=== PATIENT | female | born 2000 | race African-American/Black ===

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

== ENCOUNTER 2018-01-20 16:13 | Emergency (ER) | payer MEDICAID, SELFPAY ==
[2018-01-20 16:14] VITALS: BP 118/78; PULSE 52; RESP 16; TEMP 36.9; O2SAT 97; BMI 27.4
--- NOTE | 2018-01-20 16:28 | ED.VISSUMM ---
- ER Visit Summary Date of Service: 01/20/18 Chief Complaint: Sore throat History of Present Illness: The patient is a 17 F presenting with sore throat/ painful swallowing. Patient states this started yesterday. She woke up and continues to have painful swallowing. She is able to swallow with pain. She denies drooling. Denies fever. Denies sick contacts. Denies other complaints. Physical Examination: Vitals are stable. Patient is afebrile. Alert no acute distress. HEENT exam pharyngeal erythema with no exudate, uvula is midline Neck is supple. No meningismus Lungs are clear and equal bilaterally. Heart is regular rate and rhythm. Abdomen is soft nontender nondistended. Extremities are unremarkable. Skin is warm and dry. Remainder of exam is unremarkable. Emergency Department Course and Treatment: Patient was given Decadron p.o. Rapid strep is negative. Soft tissue neck x-ray shows no acute process. Patient is feeling improved after Decadron. She is able to tolerate p.o. She is advised to follow-up with her primary care physician. She is advised to return to ED for any worsening complaints. Disposition: Discharge home Impression: Pharyngitis This note was generated with [employer] dictation software. It may contain incorrect words, spelling, and punctuation that were not noted in review of the chart prior to signing ED Disposition - Plan for ED Patient: Chief Complaint: Other, Pain/Inj Referrals: Care Physician,No Primary [Primary Care Provider] -
--- NOTE | 2018-01-20 16:30 | RAD_ITS ---
STUDY: X-RAY - SOFT TISSUE NECK REASON FOR EXAM: Female, 17 years old. For stroke. TECHNIQUE: view(s) of the neck were obtained. COMPARISON: None. FINDINGS: Normal visualized nasopharynx, oropharynx, hypopharynx. Normal epiglottis. Normal visualized subglottic tracheal air column. Normal prevertebral soft tissue structures. Normal visualized osseous structures. The soft tissue structures are unremarkable. There is no opaque foreign body. RAD/Neck for Soft Tissue IMPRESSION: Normal x-ray soft tissue neck. Electronically Signed: Foster Moran DO at 16:57 EDT Tel [phone], Service support ,
--- NOTE | 2018-01-20 17:46 | ED.DEP ---
ED Disposition - Plan for ED Patient: Chief Complaint: Other, Pain/Inj Instructions: ED Pharyngitis Viral Referrals: Care Physician,No Primary [Primary Care Provider] - Gilbert Ballard DO [STAFF PHYSICIAN] -
[2018-01-20 17:58] VITALS: BP 126/82; PULSE 88; RESP 16; O2SAT 98
== END 2018-01-20 18:03 | disposition home or self-care (01) ==
PROVIDERS: Emergency Provider Emergency Medicine
DX: J02.9 Acute pharyngitis, unspecified (principal); Z72.0 Tobacco use
CPT/HCPCS: 70360; 87880; 99284

== ENCOUNTER 2018-07-10 19:12 | Emergency (ER) | payer MEDICAID, SELFPAY ==
[2018-07-10 19:13] VITALS: BP 120/81; PULSE 78; RESP 16; TEMP 36.6; O2SAT 99; BMI 25.8
--- NOTE | 2018-07-10 19:20 | ED.RN ---
DR ARANDA AT BEDSIDE, PT STATES SHE DOSESN'T FEEL WANTED AT HER HOME. PT STAYS WITH MOTHER. PT STATES SHE HAD PRIOR SUICIDAL ATTEMPT. PT IS PINK SLIPPED BY PD.
--- NOTE | 2018-07-10 19:24 | ED.VISSUMM ---
- ER Visit Summary Date of Service: 07/10/18 Chief Complaint: Suicidal ideation History of Present Illness: The patient is a 18 F who presents with suicidal thoughts. Patient posted on social media that she was going to commit suicide. She was drawing a bath and planned on sitting in the bathtub with a toaster. She states that she was angry at her mother because I am not wanted at my house. She has a previous suicide attempt at age 13. She does not see any counselor or psychiatrist as an outpatient. She takes no medications. Physical Examination: Vital signs reviewed. HEENT exam unremarkable. Heart is regular rate and rhythm without murmurs. Lungs are clear to auscultation. Abdomen is soft and nontender. Extremities reveal no edema. Skin exam normal. Neurologic exam normal. Patient is a flat affect. She does voice suicidal thoughts. Her insight and judgment are poor. Test Results: Laboratory studies normal except for tox screen shows cannabis Emergency Department Course and Treatment: Patient was evaluated by the workers compensation claims analyst. They feel that this was likely more behavioral issue. She did not even have the toaster plugged again. Patient will be given an outpatient appointment in the next 2 days. She is not going home to her regular house. She will go home with a cousin hal. She will sign a safety plan. Treatment Plan: [] Disposition: Discharge Impression: Suicidal thoughts This note was generated with [employer] dictation software. It may contain incorrect words, spelling, and punctuation that were not noted in review of the chart prior to signing ED Disposition - Plan for ED Patient: Chief Complaint: Suicidal Referrals: Care Physician,No Primary [Primary Care Provider] -
--- NOTE | 2018-07-10 19:34 | CM.ED ---
SOCIAL WORK NOTE DISCUSSED CASE WITH DR. ARANDA. PT TO BE EVALUATED BY [facility].
[2018-07-10 19:51] LABS: Absolute Lymphocyte Count 1.51 X10^3/ul (0.83-4.51); Basophil# 0.02 X10^3/uL; Basophil% 0.4 % (0-1); Eosinophil# 0.02 X10^3/uL; Eosinophils% 0.4 % (0-5); Hematocrit 38.3 % (37-47); Hemoglobin 12.2 g/dl (12.0-15.0); Lymphocyte # 1.51 X10^3/ul (4.0); Lymphocyte % 30.6 % (19-41); Mean Corp Hgb Conc 31.9 g/gl (32-36); Mean Corpuscular Hgb 30.1 pg (27.0-32.0); Mean Corpuscular Volume 94.6 fL (81-99); Mean Platelet Vol. 9.5 fl (6.2-12.0); Monocyte# 0.39 X10^3/uL; Monocyte% 7.9 % (0-10); Neutrophil % 60.7 % (47-70); Platelet Count 346 K/mm3 (150-450); RBC Distribution Width CV 13.5 % (11.6-14.6); RBC Distribution Width SD 46.7 fl (35.1-43.9); Red Blood Count 4.05 M/mm3 (4.2-5.4); White Blood Count 4.9 K/mm3 (4.4-11.0)
[2018-07-10 19:57] LABS: POSITIVE COUNT NO; POSITIVE DIFFERENTIAL NO; POSITIVE MORPHOLOGY NO
[2018-07-10 20:05] LABS: Anion Gap 8 (5-15); BUN 10 mg/dL (7-18); BUN/Creat Ratio 12.4 RATIO (10-20); Calcium,Total 8.7 mg/dL (8.5-10.1); Chloride 105 mmol/L (98-107); EST Glomerular Filtration Rate 96 mL/min (>60); Est Glom Filt Rate - Afr Amer 117 mL/min (>60); Estimated Creatinine Clearance 117.23 ml/min; Glucose 85 mg/dL (74-106); Potassium 3.8 mmol/L (3.5-5.1); Sodium Level 139 mmol/L (136-145)
[2018-07-10 20:13] VITALS: RESP 18
[2018-07-10 20:19] LABS: Alcohol, Blood (Medical)-Serum < 3.0 mg/dL
[2018-07-10 20:36] LABS: Pregnancy, Serum, hCG Quali. NEGATIVE Negative (0-9 Nonpreg)
[2018-07-10 20:37] LABS: Amphetamine Urine VISTA NEGATIVE (<1000 ng/mL); Barbiturate Urine VISTA NEGATIVE (< 200 ng/mL); Benzodiazepine Urine VISTA NEGATIVE (< 200 ng/mL); Cocaine Urine VISTA NEGATIVE (< 300 ng/mL); Ecstacy Urine VISTA NEGATIVE (< 500 ng/mL); Methadone Urine VISTA NEGATIVE (< 300 ng/mL); PCP Urine VISTA NEGATIVE (< 25 ng/mL); THC Urine VISTA POSITIVE (< 50 ng/mL); Vista UDS pH Range 6
--- NOTE | 2018-07-10 20:49 | ED.RN ---
CALLED [facility] TO SEE THIS PT, ALAN RUBIO IS [employer]
--- NOTE | 2018-07-10 21:19 | ED.RN ---
[facility] CALLED BACK, ALAN WILL BE IN
--- NOTE | 2018-07-10 22:59 | ED.DEP ---
ED Disposition - Plan for ED Patient: Disposition: Home or Assisted Living Chief Complaint: Suicidal Instructions: ED Contract, No Harm Referrals: Care Physician,No Primary [Primary Care Provider] -
[2018-07-10 23:20] VITALS: BP 129/88; PULSE 68; RESP 16; O2SAT 95
== END 2018-07-10 23:21 | disposition home or self-care (01) ==
PROVIDERS: Emergency Provider Emergency Medicine
DX: R45.851 Suicidal ideations (principal); F12.90 Cannabis use, unspecified, uncomplicated
CPT/HCPCS: 80048; 80307; 80320; 84703; 85025; 99283; G0480

== ENCOUNTER 2018-10-19 17:28 | Emergency (ER) | payer MEDICAID, SELFPAY ==
[2018-10-19 17:29] VITALS: BP 121/79; PULSE 55; RESP 18; TEMP 36.2; O2SAT 100; O2SAT 99; BMI 29.5
--- NOTE | 2018-10-19 17:57 | RAD_ITS ---
STUDY: X-RAY CHEST REASON FOR EXAM: Female, 18 years old. Cough with chest pain and tightness TECHNIQUE: AP COMPARISON: August 17, 2017 FINDINGS: The lungs are clear and expanded. There is no demonstrated pleural abnormality. Normal size heart. Normal mediastinum and hany. Normal visualized pulmonary arteries. Normal visualized aortic arch and descending thoracic aorta. Normal visualized thoracic spine. Normal visualized ribs, clavicles, and shoulders. There is no demonstrated abnormality of the visualized soft tissue structures of the upper abdomen. RAD/Chest 1 View (Portable) IMPRESSION: Normal x-ray examination of the chest. Electronically Signed: Dank Son MD at 18:22 EDT , Service support ,
--- NOTE | 2018-10-19 18:06 | ED.VISSUMM ---
- ER Visit Summary Date of Service: 10/19/18 Chief Complaint: Cough History of Present Illness: The patient is a 18 F presenting with cough x2 days. Patient states that it has been mildly productive of sputum. She denies fever. Denies rhinorrhea or sore throat. Her brother also has a similar cough. She denies other complaints. She has tried NyQuil at home. Physical Examination: Vitals are stable. Patient is afebrile. Alert no acute distress. HEENT exam is unremarkable. Neck is supple. Lungs are clear and equal bilaterally. Heart is regular rate and rhythm. Abdomen is soft nontender nondistended. Extremities are unremarkable. Skin is warm and dry. Remainder of exam is unremarkable. Emergency Department Course and Treatment: Chest x-ray shows no acute process. She is given prescription for Tessalon Perles. Advised to follow-up with her primary care physician. Advised return to ED for worsening complaints. Disposition: Discharge home Impression: URI This note was generated with [employer] dictation software. It may contain incorrect words, spelling, and punctuation that were not noted in review of the chart prior to signing ED Disposition - Plan for ED Patient: Referrals: Care Physician,No Primary [Primary Care Provider] -
--- NOTE | 2018-10-19 18:29 | ED.DEP ---
ED Disposition - Plan for ED Patient: Instructions: ED Upper Resp Infec No Abx Tx Prescriptions: Benzonatate [Tessalon Perle] 200 mg PO TID PRN PRN #20 capsule PRN Reason: Cough Referrals: Care Physician,No Primary [Primary Care Provider] - Cecilio Cabrera MD [STAFF PHYSICIAN] -
== END 2018-10-19 18:43 | disposition home or self-care (01) ==
PROVIDERS: Emergency Provider Emergency Medicine
DX: J06.9 Acute upper respiratory infection, unspecified (principal); Z72.0 Tobacco use
CPT/HCPCS: 71045; 99284

== ENCOUNTER 2018-11-29 03:45 | Emergency (ER) | payer MEDICAID, SELFPAY ==
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
== END 2018-11-29 06:10 | disposition home or self-care (01) ==
PROVIDERS: Emergency Provider Emergency Medicine; Family Provider Family Medicine; PCP Family Medicine
DX: S00.83XA Contusion of other part of head, initial encounter (principal); S00.211A Abrasion of right eyelid and periocular area, initial encounter; S10.91XA Abrasion of unspecified part of neck, initial encounter; Y04.2XXA Assault by strike against or bumped into by another person, initial encounter; Y93.9 Activity, unspecified; Y92.9 Unspecified place or not applicable
CPT/HCPCS: 70450; 70486; 72125; 99283

== ENCOUNTER 2019-04-05 09:00 | Emergency (ER) | payer MEDICAID, SELFPAY ==
[2019-04-05 09:01] VITALS: BP 123/79; PULSE 52; RESP 16; TEMP 37.2; O2SAT 100; BMI 24.3
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
--- NOTE | 2019-04-05 09:39 | ED.DEP ---
ED Disposition - Plan for ED Patient: Instructions: CONTUSION, Foot Prescriptions: Naproxen [Naprosyn] 500 mg PO BID PRN #20 tab Prescription Printed Referrals: Gilbert Ballard DO [Primary Care Provider] - 5-7 Days
== END 2019-04-05 11:12 | disposition home or self-care (01) ==
LOC: ED 09:37
PROVIDERS: Emergency Provider Emergency Medicine; Family Provider Family Medicine; PCP Family Medicine
DX: S90.31XA Contusion of right foot, initial encounter (principal); W22.8XXA Striking against or struck by other objects, initial encounter; Y93.9 Activity, unspecified; Y92.9 Unspecified place or not applicable
CPT/HCPCS: 73630; 99285

== ENCOUNTER 2020-04-29 14:07 | Emergency (ER) | payer MEDICAID, SELFPAY ==
[2020-04-29 14:08] VITALS: BP 121/70; PULSE 47; RESP 18; TEMP 36.2; O2SAT 100; BMI 25.1
--- NOTE | 2020-04-29 15:11 | ED.VIS.URI ---
History of Present Illness Chief Complaint: Ear Problem Informant: Patient Onset: Yesterday Context: Gradual Onset Timing: Continuous Quality: ache/sore Location: left ear Current Severity: Moderate Maximum Severity: Moderate Worsened by: - - nothing in particular Relieved by: - - hasn't tried anything Associated Symptoms: Negative for: Nasal Congestion, Headache, Nausea, Vomiting, Diarrhea Narrative: Patient states she is presenting for left earache and wanting a work note. She has not been swimming lately. She denies any changes in her hearing. No otorrhea. No fevers or chills. No sore throat, congestion, cough, recent URI, or other symptoms at this time. Past Medical History - Allergies and Home Meds Allergies/Adverse Reactions: Allergies No Known Allergies Allergy (Verified 04/05/19 09:09) Primary Care Physician: Gilbert Ballard DO [Primary Care Provider] - Past Medical History: None Smoking Status: Never smoker Review of Systems General: Denies: Chills, Fever, Sweats Eyes: Denies: Visual changes - bilaterally, Diplopia ENT: Reports: Left ear pain. Denies: Rhinorrhea, Sore throat Cardiovascular: Denies: Chest pain, Palpitations Respiratory: Denies: Dyspnea, Cough, Dyspnea on exertion Gastrointestinal: Denies: Nausea, Vomiting Skin: Denies: Rash, Wounds Neurological: Denies: Headache, Weakness, Numbness Physical Exam Vital Signs/Narrative: Vital Signs Temp Pulse Resp BP Pulse Ox 04/29/20 14:08 97.2 F L 47 L 18 121/70 H 100 Inital Vital Signs reviewed: Yes General: Well nourished, Well developed, - - Well-appearing no distress. Talking on cell phone. Head: Normocephalic, Atraumatic Eyes: Perrl, EOMI Ears: Normal external canal, TM's clear, Pain with Movement of Left Tragus, - - Cerumen present bilaterally, no obvious purulent discharge, no canal stenosis/edema. No focal abscesses in external auditory canals. Nose: Normal Inspection, No Rhinorrhea Neck: Supple, Nontender, No Lymphadenopathy Respiratory: No distress Skin: Normal color, No rash, No Trauma Neurological: Alert, Oriented x3, Cranial nerves II-XII grossly intact, Normal Strength, Normal Sensation, Normal Gait Psychological: Normal affect, Normal Mood Diagnostic/Tx/Re-eval - Medical Decision Making We will treat as an early external otitis with Cortisporin otic suspension, given appropriate discharge instructions for this and work note. ED Disposition - Plan for ED Patient: Disposition: Home or Assisted Living Diagnosis: Otitis externa, left Instructions: ED Otitis Externa Referrals: Gilbert Ballard DO [Primary Care Provider] - As Needed Additional Instructions: Use Cortisporin otic drops, 4 drops to affected ear, 4 times daily. Lie on your right side for 10 minutes after using the drops each time.
[2020-04-29 15:33] VITALS: BP 124/69; PULSE 72; RESP 15; O2SAT 99
== END 2020-04-29 15:35 | disposition home or self-care (01) ==
LOC: ED 15:24
PROVIDERS: Emergency Provider Emergency Medicine; PCP Family Medicine
DX: H60.92 Unspecified otitis externa, left ear (principal)
CPT/HCPCS: 99282

== ENCOUNTER 2020-07-19 12:14 | Emergency (ER) | payer MEDICAID, SELFPAY ==
[2020-07-19 12:14] VITALS: BP 109/64; PULSE 54; RESP 18; TEMP 36.6; O2SAT 100; BMI 27.3
--- NOTE | 2020-07-19 12:19 | ED.RN ---
PT REPEATEDLY PLAYING ON PHONE THIS RN ATTEMPTS TO ASK QUESTIONS. THIS RN ASKS PT TO PLEASE FINISH UP SO THAT SHE CAN CONTINUE ANSWERING QUESTIONS
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
[2020-07-19 14:16] VITALS: BP 122/67; PULSE 60; RESP 14; O2SAT 97
== END 2020-07-19 14:17 | disposition home or self-care (01) ==
PROVIDERS: Emergency Provider Emergency Medicine; PCP Family Medicine
DX: S53.402A Unspecified sprain of left elbow, initial encounter (principal); X50.1XXA Overexertion from prolonged static or awkward postures, initial encounter; Y93.9 Activity, unspecified; Y92.9 Unspecified place or not applicable
CPT/HCPCS: 73080; 99282

== ENCOUNTER 2022-05-31 11:32 | Emergency (ER) | payer MEDICAID, SELFPAY ==
[2022-05-31 11:33] VITALS: BP 106/83; PULSE 85; RESP 16; TEMP 36; O2SAT 98; BMI 22.1
--- NOTE | 2022-05-31 11:39 | EX.ED.DYSGE1 ---
HPI <ERI Galaviz - Last Filed: 05/31/22 15:19> History of Present Illness Chief Complaint: Abscess Narrative Narrative: 22-year-old female has had a swollen tender area over her right inner thigh for the last week. It does not seem to be increasing in size. There have been no skin changes or drainage. She tried using a heating pad with no relief. No fever or chills or systemic symptoms. PFSH <ERI Galaviz - Last Filed: 05/31/22 15:19> PFSH Home Medications naproxen 500 mg tablet 500 mg PO BID PRN #20 tabs 07/19/20 [Rx Last Taken Unknown] Allergy/AdvReac Type Severity Reaction Status Date / Time No Known Allergies Allergy Verified 07/19/20 12:23 Social History Smoking Status: Never smoker ROS <ERI Galaviz - Last Filed: 05/31/22 15:19> ROS ED ROS Narrative Constitutional: Negative for fever, chills, malaise. Eyes: Negative for visual change. ENT: Negative for sore throat, ear pain, rhinorrhea. CVS: Negative for palpitations, chest pain, syncope. Respiratory: Negative for shortness of breath, cough. GI: Negative for abdominal pain, nausea, vomiting, diarrhea. : Negative for dysuria, hematuria or frequency. Neuro: Negative for headache, motor/sensory dysfunction. Skin: Negative for rash, abscess, or wound. Musc: Negative for joint pain, swelling, trauma. Heme: Negative for easy bruising, bleeding, lymphadenopathy. EXAM <ERI Galaviz Last Filed: 05/31/22 15:19> Physical Exam Narrative Exam Narrative: CONST: Patient sitting in no acute distress. EYES: Normal inspection. NECK: Normal inspection. RESP: No respiratory distress, CTAB. CVS: Regular rate and rhythm, no murmur, no gallop. SKIN: Color normal, no rash, warm, dry, intact. EXTREMITIES: Normal appearance, small area of tenderness and induration over right medial thigh. No fluctuance or crepitus. Full range of motion, 2+ DP pulses. NEURO: Oriented x4. PSYCH: Normal affect. Const Vital Signs: 05/31/22 11:33 Temperature 96.8 F L Temperature Source Temporal Pulse Rate 85 Respiratory Rate 16 Blood Pressure 106/83 H Blood Pressure Mean 90 Pulse Ox 98 Oxygen Delivery Method Room Air <Dung Juárez MD - Last Filed: 05/31/22 19:25> Physical Exam Const Vital Signs: 05/31/22 11:33 Temperature 96.8 F L Temperature Source Temporal Pulse Rate 85 Respiratory Rate 16 Blood Pressure 106/83 H Blood Pressure Mean 90 Pulse Ox 98 Oxygen Delivery Method Room Air [facility] <ERI Galaviz - Last Filed: 05/31/22 15:19> [facility] Narrative Medical decision making narrative: Patient has a tender swollen area on her right medial thigh. There is no overlying skin changes to suggest cellulitis. Its not obviously fluctuant. There is no involvement of the genital region or Urodine symptoms. Bedside ultrasound does show a fluid collection and reactive lymph node. I anesthetized the area with 4 cc of 1% lidocaine and using ultrasound guidance placed an 18-gauge needle into the pocket of fluid but was only able to aspirate about 1 cc of blood. At this time I feel she can follow-up outpatient for further evaluation of this cyst. There is no clinical signs of infection so do not feel antibiotics are indicated but she was cautioned to return if it enlarges or develops redness or systemic symptoms. Patient was agreeable with this plan and discharged in stable condition. <Dung Juárez MD - Last Filed: 05/31/22 19:25> [facility] Narrative Medical decision making narrative: Patient has a tender swollen area on her right medial thigh. There is no overlying skin changes to suggest cellulitis. Its not obviously fluctuant. There is no involvement of the genital region or U[place]ine symptoms. Bedside ultrasound does show a fluid collection and reactive lymph node. I anesthetized the area with 4 cc of 1% lidocaine and using ultrasound guidance placed an 18-gauge needle into the pocket of fluid but was only able to aspirate about 1 cc of blood. At this time I feel she can follow-up outpatient for further evaluation of this cyst. There is no clinical signs of infection so do not feel antibiotics are indicated but she was cautioned to return if it enlarges or develops redness or systemic symptoms. Patient was agreeable with this plan and discharged in stable condition. I have personally performed a face to face assessment of the patient and have reviewed the MEGAN Note. I performed a substantive portion of the visit including all aspects of the following. My cochran findings include: History is right thigh pain and swelling times a few days Exam is afebrile. Vital signs noted. Nontoxic-appearing. Mild tenderness and swelling right thigh. Medical Decision Making fluid collection noted on bedside ultrasound. Needle aspiration. No purulent material returned. Follow-up primary care. Other additions or changes: [None] Discharge Plan Triage Chief Complaint: Abscess ED Midlevel Provider: Ivis Morales ED Provider: Dung Juárez Dx/Rx/DC Orders Clinical Impression: Cyst of skin and subcutaneous tissue Instructions: ED Abscess Incision And Drainage Prescriptions: No Action naproxen 500 MG tablet 500 mg PO BID PRN Qty: 20 0RF Primary Care Provider: Gilbert Ballard Referrals: Tamie Wright MD [Med Staff - Appraiser Auditor] - Gilbert Ballard, [Primary Care Provider] - Activity Restrictions/Additional Instructions: There is a cyst or fluid collection in her thigh that was unable to be drained here. Please follow-up with your primary care doctor. If it develops increased swelling, redness, or you have a fever come back to the ER. Disposition Disposition: Home, Self Care Discharge Date/Time: 05/31/22 12:53
[2022-05-31] MEDS: Lidocaine 1% (20 ml mdv) 20 ML Vial INFILT (12:49)
== END 2022-05-31 12:53 | disposition home or self-care (01) ==
PROVIDERS: Emergency Provider Emergency Medicine; PCP Family Medicine; Visit Provider Emergency Medicine
DX: L72.9 Follicular cyst of the skin and subcutaneous tissue, unspecified (principal); Z79.1 Long term (current) use of non-steroidal anti-inflammatories (NSAID)
CPT/HCPCS: 99284

== ENCOUNTER 2022-11-11 09:25 | Emergency (ER) | payer MEDICAID, SELFPAY ==
[2022-11-11 09:26] VITALS: BP 110/82; PULSE 81; RESP 16; TEMP 36.2; O2SAT 99; BMI 22.4
--- NOTE | 2022-11-11 09:39 | EX.ED.DYSGE1 ---
HPI History of Present Illness Chief Complaint: Nausea/Vomiting Informant: patient Narrative Narrative: Patient presents with feeling dehydrated nausea vomiting with hematemesis. Patient went to work and she was feeling normal. She works in a very hot area. She was sweating a lot. She started to feel lightheaded. This was bringing on a migraine for her. She does have a history of migraine. This felt like a typical migraine. She has stopped somebody at work for some medicine. She was given 3 pills. It sounds like it was aspirin Tylenol and a gelcap that they think was Advil. She stated then this caused nausea. She went outside where it was slightly cooler. She felt better outside but the nausea continued. She vomited twice. She did have some bright red blood when vomiting. Nausea is still there but it is actually better now and she is feeling overall a little bit better. No history of abdominal issues or recurrent nausea vomiting or diarrhea. No prior abdominal surgeries. Last menstrual cycle was 2 weeks ago and normal. She is not having pain in the abdomen. PFSH PFS Home Medications naproxen 500 mg tablet 500 mg PO BID PRN #20 tabs 07/19/20 [Rx Last Taken Unknown] Allergy/AdvReac Type Severity Reaction Status Date / Time No Known Allergies Allergy Verified 11/11/22 09:29 Social History Smoking Status: Never smoker ROS ROS ED ROS Narrative A complete review of systems was performed and is negative except as documented in the history of present illness. Some specific details below. Constitutional: No recent fevers or chills. She was feeling fine until she had been working for an hour or so. EYE: No visual complaints or pain. ENT: No difficulty swallowing. No swelling. No pain. No history of GERD. CV: No chest pain or palpitations. Respiratory: No dyspnea. No hemoptysis. No difficulty taking breaths. GI: Please see history of present illness. : No frequency dysuria or hematuria. Musculoskeletal: No recent trauma. No pains. Skin: No rash. Nondiaphoretic. Neuro: No weakness or numbness. Endocrine: No polyuria or polydipsia. EXAM Physical Exam Narrative Exam Narrative: CONSTITUTIONAL: Patient is nontoxic in appearance. The patient looks comfortable. HEENT: No notable trauma. Mucous membranes moist. No sinus tenderness. No indication of pain with swallowing. No intraoral lesions. EYES: No conjunctival injection. No proptosis. CARDIOVASCULAR: Regular rate. Regular rhythm. No notable murmur. No JVD. RESPIRATORY: No respiratory distress. Breathing is unlabored. No wheezes. No rhonchi. No rales. No pain with a deep breath. GASTROINTESTINAL: Not distended. Bowel sounds are normal. No tenderness. No guarding. No rebound. No palpable mass. No bruit. She is holding an emesis bag but states her nausea is somewhat improved. But overall her abdomen is benign. GENITOURINARY: No tenderness over the bladder. No CVA tenderness. MUSCULOSKELETAL: Atraumatic. No peripheral edema. NEUROLOGICAL: Patient is alert and appropriate. No focal deficit noted. SKIN: No noted rashes. No diaphoresis. PSYCHIATRIC: Patient is calm. Mood is appropriate. Const Vital Signs: 11/11/22 09:26 Temperature 97.2 F L Temperature Source Temporal Pulse Rate 81 Respiratory Rate 16 Blood Pressure 110/82 H Blood Pressure Mean 91 Pulse Ox 99 Oxygen Delivery Method Room Air MDM MDM MDM Narrative Medical decision making narrative: Patient CBC shows no acute abnormalities. No sign of anemia or thrombocytopenia. Electrolytes are normal. Glucose is minimally elevated at 108 but this is not likely the cause of her symptoms nor her diagnosis of diabetes. Calcium is normal at 9.3. Patient was given Zofran and IV fluids. She has no nausea. Her headache is gone. She feels much better. The friend that is with her states that she looks and feels much better. She is comfortable going home. We discussed drinking plain water and diet. Caffeinated drinks and artificial sweeteners as these can all be dehydrating. Lab Data Attestation: I reviewed the patient's lab results. Labs: Laboratory Results - last 24 hr 11/11/22 11/11/22 09:50 09:50 WBC 5.4 RBC 4.09 L Hgb 12.4 Hct 38.6 MCV 94.4 MCH 30.3 MCHC 32.1 RDW Std Deviation 53.9 H RDW Coeff of Myrno 15.4 H Plt Count 394 MPV 9.0 Immature Gran % (Auto) 0.200 Neut % (Auto) 65.7 Lymph % (Auto) 27.0 Harney % (Auto) 6.0 Eos % (Auto) 0.4 Baso % (Auto) 0.7 Absolute Neuts (auto) 3.5 Absolute Lymphs (auto) 1.45 Nucleated RBC % 0 Sodium 138 Potassium 3.8 Chloride 104 Carbon Dioxide 27.0 Anion Gap 7 BUN 14 Creatinine 0.92 Estim Creat Clear Calc 98.54 Est GFR (MDRD) Af Amer 96 Est GFR (MDRD) Non-Af 79 BUN/Creatinine Ratio 15.2 Glucose 108 H Calcium 9.3 Discharge Plan Triage Chief Complaint: Nausea/Vomiting ED Provider: Wilfredo Hernandez Dx/Rx/DC Orders Clinical Impression: Dehydration, mild, Yeimi-Morrison tear, Nausea & vomiting, Migraine Instructions: ED Dehydration (Adult), ED Vomiting (Adult) Prescriptions: No Action naproxen 500 MG tablet 500 mg PO BID PRN Qty: 20 0RF Stand Alone Forms: ED Work / School Excuse Primary Care Provider: Gilbert Ballard Referrals: Gilbert Ballard, [Primary Care Provider] - 3-5 Days if not improving Disposition Disposition: Home, Self Care
[2022-11-11] MEDS: 0.9% Normal Saline 1,000 ML 1000 ML IV (09:50)
[2022-11-11] MEDS: Ondansetron 4 MG/2 ML Vial IV (09:51)
[2022-11-11 09:59] LABS: Absolute Lymphocyte Count 1.45 X10^3/uL (0.83-4.51); Absolute Neutrophil Count 3.5 X10^3/uL (2.0-7.7); Basophil# 0.04 X10^3/uL; Basophil% 0.7 % (0-1); Eosinophil# 0.02 X10^3/uL; Eosinophils% 0.4 % (0-5); Hematocrit 38.6 % (37-47); Hemoglobin 12.4 g/dL (12.0-15.0); Lymphocyte # 1.45 X10^3/ul (0.83-4.51); Mean Corp Hgb Conc 32.1 g/dL (32-36); Mean Corpuscular Hgb 30.3 pg (27.0-32.0); Mean Corpuscular Volume 94.4 fL (81-99); Monocyte# 0.32 X10^3/uL; NRBC Flagged by Analyzer 0 % (0-5); Neutrophil # 3.53 X10^3/uL (2.7-7.7); Neutrophil % 65.7 % (47-70); Platelet Count 394 K/mm3 (150-450); RBC Distribution Width CV 15.4 % (11.6-14.6); RBC Distribution Width SD 53.9 fl (35.1-43.9); Red Blood Count 4.09 M/mm3 (4.2-5.4); White Blood Count 5.4 K/mm3 (4.4-11.0)
[2022-11-11 10:19] LABS: Anion Gap 7 (5-15); BUN 14 mg/dL (7-18); BUN/Creat Ratio 15.2 RATIO (10-20); Calcium,Total 9.3 mg/dL (8.5-10.1); Chloride 104 mmol/L (98-107); Creatinine, Serum 0.92 mg/dL (0.55-1.02); EST Glomerular Filtration Rate 79 mL/min (>60); Est Glom Filt Rate - Afr Amer 96 mL/min (>60); Estimated Creatinine Clearance 98.54 ml/min; Glucose 108 mg/dL (74-106); Potassium 3.8 mmol/L (3.5-5.1); Sodium Level 138 mmol/L (136-145)
== END 2022-11-11 11:35 | disposition home or self-care (01) ==
PROVIDERS: Emergency Provider Emergency Medicine; PCP Family Medicine; Visit Provider Emergency Medicine
DX: K22.6 Gastro-esophageal laceration-hemorrhage syndrome (principal); E86.0 Dehydration; G43.909 Migraine, unspecified, not intractable, without status migrainosus; R11.2 Nausea with vomiting, unspecified
CPT/HCPCS: 80048; 85025; 96361; 96374; 99284; J2405

== ENCOUNTER 2024-02-26 21:44 | Emergency (ER) | payer MEDICAID, SELFPAY ==
[2024-02-26 21:45] VITALS: BP 116/83; PULSE 51; RESP 18; TEMP 36.8; O2SAT 98; BMI 26.5
--- NOTE | 2024-02-26 22:19 | RAD_ITS ---
EXAM: XR CHEST, 2 VIEWS CLINICAL INDICATION: COUGH TECHNIQUE: Frontal and lateral views of the chest. COMPARISON: 10/19/2018 FINDINGS: LUNGS AND PLEURAL SPACES: No significant abnormality. No consolidation or edema. No pneumothorax. No effusion. HEART: No significant abnormality. Cardiac silhouette not enlarged. MEDIASTINUM: Central airways and mediastinal contour are unremarkable. BONES/JOINTS: No significant abnormality. No acute fracture. SOFT TISSUES: No significant abnormality. RAD/Chest PA and Lateral IMPRESSION: No radiographic evidence of acute cardiopulmonary disease. Electronically Signed: Darrell Brock DO at 22:26 EDT ,
[2024-02-26] MEDS: Benzonatate 100 MG Capsule 200 MG PO (22:24)
[2024-02-26] MEDS: dexAMETHasone 10 MG/ML Vial PO.IVFORM (22:24)
--- NOTE | 2024-02-26 23:27 | EDS_ITS ---
HPI History of Present Illness Chief Complaint: Cold Sx Informant: patient Narrative Narrative: Patient is a 23-year-old female with no significant past medical history. She states for the past 2 to 3 days she has had congestion drainage and cough. She reports that her brother whom she lives with is sick and she also has a coworker with similar symptoms. She denies any history of lung disorder history of immunosuppression but feels like her symptoms have been worsening and with concern for infection comes in for evaluation. PFSH PFSH no medical history Home Medications ?Medication ?Instructions ?Recorded ?Last Taken ?Type naproxen 500 mg tablet 500 mg PO BID PRN #20 tabs 07/19/20 Unknown Rx azelastine 137 mcg (0.1 %) nasal 2 spray intranasal BID #30 mL 02/26/24 Unknown Rx spray benzonatate 200 mg capsule 200 mg PO TID PRN cough #30 caps 02/26/24 Unknown Rx prednisone 20 mg tablet 40 mg (2 x 20 mg) PO DAILY 5 days 02/26/24 Unknown Rx #10 tabs Allergy/AdvReac Type Severity Reaction Status Date / Time No Known Allergies Allergy Verified 02/26/24 21:45 Social History Smoking Status: Never smoker ROS ROS ED Constitutional Constitutional ED: Denies chills or fever(s) Eyes Eyes: Denies blurry vision or change in vision ENT ENT ED: Reports ear pain, rhinorrhea and sore throat Cardiovascular Cardiovascular: Denies chest pain Respiratory/Chest Respiratory/Chest: Reports cough; Denies dyspnea Gastrointestinal Gastrointestinal: Denies abdominal pain, diarrhea, nausea or vomiting Genitourinary Genitourinary ED: Denies dysuria Musculoskeletal Musculoskeletal: Reports myalgias Integumentary Denies rash Neurologic Neurologic: Reports headache(s) Hematologic/Lymphatic Hematologic/Lymphatic: Denies easy bleeding or easy bruising Allergic/Immunologic Allergic/Immunologic ED: Denies mouth swelling or tongue swelling EXAM Physical Exam Const Vital Signs: 02/26/24 21:45 02/26/24 22:06 Temperature 98.2 F Temperature Source Temporal Pulse Rate 51 L Respiratory Rate 18 Respiratory Pattern Normal Blood Pressure 116/83 H Blood Pressure Mean 94 Pulse Ox 98 Oxygen Delivery Method Room Air Positive well nourished and well developed General Appearance ED: well developed; Negative for pallor HEENT HEENT Narrative: Nasal mucosa is hyperemic and boggy with enlarged inferior nasal turbinate There is cobblestoning the posterior pharynx consistent with sinus drainage but no airway edema or compromise No secondary findings in the posterior pharynx to suggest infection Bilateral TMs are retracted but show no secondary changes to suggest infection Eyes PERRL and EOMs intact bilaterally General Eye ED: Negative for pale conjunctiva or scleral icterus Neck supple Neck Narrative: No crepitance palpated Chest Wall palpation of chest normal Resp normal respiratory effort and clear to auscultation bilaterally Resp Narrative: No nasal flaring retractions tachypnea or accessory muscle use Cardio regular rate and regular rhythm Extremity normal to inspection Extremity Narrative: No asymmetric edema no pitting edema negative Homans' sign bilaterally Neuro oriented x3, CN's II-XII intact bilaterally and no sensory deficits noted Sensorium / Orientation: alert Motor Exam: strength 5/5 throughout Psych mental status grossly normal Skin no rashes or lesions noted General Skin Exam: Negative for jaundice or pallor MDM MDM MDM Narrative Medical decision making narrative: Patient arrived to the ER with stable vitals and no signs of acute respiratory distress. She reported multiple sick contacts and her physical exam and history is consistent with upper respiratory tract infection secondary to a viral source such as COVID versus influenza versus RSV. There is also concern for potential pneumonia and secondary to this a chest x-ray as well as viral swab were obtained. Chest x-ray revealed no signs of acute infiltrate and viral swab was negative. However just because COVID flu and RSV are negative is not rule out the fact that she may have rhinovirus or human metapneumovirus or parainfluenza. Either way she is not in respiratory distress she does not require supplemental oxygen he is not hypoxic and therefore there is no need for further workup or admission and she can be discharged home with symptomatic care. History & Record Review Discussion w/independent historian: Patient Radiography Diagnostic Testin view chest x-ray as interpreted by the emergency medicine physician reveals no acute infiltrate pneumothorax or pleural effusion Discharge Plan Triage Chief Complaint: Cold Sx ED Provider: Yuan Fernandez Dx/Rx/DC Orders Clinical Impression: Viral upper respiratory tract infection with cough Instructions: ED URI, Viral, No Abx (Adult) Prescriptions: New prednisone 20 mg tablet 40 mg PO DAILY 5 Days Qty: 10 0RF benzonatate 200 mg capsule 200 mg PO TID PRN (Reason: cough) Qty: 30 0RF azelastine 137 mcg (0.1 %) spray,non-aerosol 2 spray intranasal BID Qty: 30 0RF Rx Instructions: administer into each nostril No Action naproxen 500 MG tablet 500 mg PO BID PRN Qty: 20 0RF Stand Alone Forms: ED Work / School Excuse Primary Care Provider: Gilbert Ballard Referrals: Gilbert Ballard, [Primary Care Provider] - Print Language: Latvian Disposition Disposition: Home, Self Care
== END 2024-02-26 23:46 | disposition home or self-care (01) ==
PROVIDERS: Emergency Provider Emergency Medicine; PCP Family Medicine; Visit Provider Emergency Medicine
DX: J06.9 Acute upper respiratory infection, unspecified (principal); Z11.52 Encounter for screening for COVID-19
CPT/HCPCS: 71046; 87631; 99282

== ENCOUNTER 2024-03-14 20:40 | Emergency (ER) | payer OTHER, MEDICAID, SELFPAY ==
[2024-03-14 20:40] VITALS: BP 114/88; PULSE 56; RESP 16; TEMP 36.4; O2SAT 100; BMI 25.8
--- NOTE | 2024-03-14 20:45 | RAD_ITS ---
STUDY: X-RAY - RIGHT KNEE REASON FOR EXAM: Female, 23 years old. FALL TECHNIQUE: 4 view(s) of the knee. COMPARISON: None. FINDINGS: Normal visualized distal femur. Normal visualized proximal tibia and fibula. Normal proximal tibiofibular articulation. Normal medial femorotibial compartment. Normal lateral femorotibial compartment. Normal patellofemoral articulation. The soft tissue structures are unremarkable. RAD/Knee 4 or More Views IMPRESSION: Normal x-ray examination of the knee. Electronically Signed: Dank Son MD at 21:24 EDT ,
--- NOTE | 2024-03-14 22:30 | EDS_ITS ---
HPI History of Present Illness Chief Complaint: Lower Extremity Injury Informant: patient Narrative Narrative: 23-year-old female presenting to the emergency room with right knee injury. Patient states that yesterday she was at work and she slipped due to not having no shoes on. She states she landed on her right knee. She is unsure of exactly how she landed. She notes soreness tenderness and some mild swelling over the medial superior aspect of the anterior knee. She denies any other injuries or any lower leg injuries. She did not have a means of transportation until this evening to come to emergency previously. PFSH PFSH Home Medications ?Medication ?Instructions ?Recorded ?Last Taken ?Type naproxen 500 mg tablet 500 mg PO BID PRN #20 tabs 07/19/20 Unknown Rx azelastine 137 mcg (0.1 %) nasal 2 spray intranasal BID #30 mL 02/26/24 Unknown Rx spray benzonatate 200 mg capsule 200 mg PO TID PRN cough #30 caps 02/26/24 Unknown Rx prednisone 20 mg tablet 40 mg (2 x 20 mg) PO DAILY 5 days 02/26/24 Unknown Rx #10 tabs Allergy/AdvReac Type Severity Reaction Status Date / Time No Known Allergies Allergy Verified 03/14/24 20:42 Social History Smoking Status: Never smoker ROS ROS ED Constitutional Constitutional ED: Denies chills, fever(s) or weight loss Eyes Eyes: Denies change in vision or diplopia ENT ENT ED: Denies ear pain, rhinorrhea or sore throat Cardiovascular Cardiovascular: Denies chest pain, orthopnea, palpitations or racing heartbeat Respiratory/Chest Respiratory/Chest: Denies cough, dyspnea or orthopnea Gastrointestinal Gastrointestinal: Denies abdominal pain, diarrhea, nausea or vomiting Genitourinary Genitourinary ED: Denies dysuria, hematuria or urinary frequency Musculoskeletal Musculoskeletal: Reports other Details: See history of present illness ; Denies arthralgias, back pain, myalgias or neck pain Integumentary Denies abscess or rash Neurologic Neurologic: Denies headache(s) or weakness Psychiatric Psychiatric: Denies anxiety, depression, suicidal ideation or suicidal thoughts Endocrine Endocrinology: Denies polydipsia, polyphagia or polyuria Allergic/Immunologic Allergic/Immunologic ED: Denies mouth swelling, tongue swelling or urticaria EXAM Physical Exam Const Vital Signs: 03/14/24 20:40 Temperature 97.6 F L Temperature Source Temporal Pulse Rate 56 L Respiratory Rate 16 Blood Pressure 114/88 H Blood Pressure Mean 96 Pulse Ox 100 Oxygen Delivery Method Room Air Positive well nourished and well developed General Appearance ED: well developed HEENT Reports normocephalic, head/scalp atraumatic and moist mucous membranes Eyes PERRL and EOMs intact bilaterally Neck no lymphadenopathy, supple and no JVD Resp normal respiratory effort and clear to auscultation bilaterally Cardio regular rate, regular rhythm and no murmurs GI normal to inspection, nondistended, normoactive bowel sounds and non-tender Palpation: soft Back/Spine no CVA tenderness and normal ROM Extremity Extremity Narrative: No obvious joint effusion. No bursal swelling. Tensor mechanism of the right knee is intact. There is mild swelling and tenderness over the medial superior aspect of the patella soft tissue. The patella itself is nontender. Ligamentous exam appears normal. Neurovascular intact distal. General Extremety ED: Negative for edema General Extremity: Negative for edema Neuro oriented x3 and CN's II-XII intact bilaterally Sensorium / Orientation: alert Motor Exam: strength 5/5 throughout Psych mental status grossly normal Mood & Affect: Negative for depressed or tearful Skin no rashes or lesions noted and no wounds MDM MDM MDM Narrative Medical decision making narrative: Differential diagnosis includes but not limited to fractures ligamentous sprain bony contusion connective tissue injury neurovascular injury muscle contusion traumatic bursitis My independent interpretation of the plain films of the right knee is no acute fracture. Radiology over read is negative as well. Clinically this appears more of a contusion. The area that is hurting does not appear to be a ligamentous sprain. Would recommend Vernon wrap as needed for support ibuprofen and ice. Follow-up Workmen's Comp. not improving History & Record Review Discussion w/independent historian: Patient Radiography Diagnostic Testing: Clinical Impression(s) from Imaging Studies Knee X-Ray 03/14/24 20:45 IMPRESSION: Normal x-ray examination of the knee. Electronically Signed: Dank Son MD at 21:24 EDT Reading Location ID and [facility] [id number] [facility] [place] Tel , Service support , Discharge Plan Triage Chief Complaint: Lower Extremity Injury ED Provider: Hemal Herzog Dx/Rx/DC Orders Prescriptions: No Action naproxen 500 MG tablet 500 mg PO BID PRN Qty: 20 0RF prednisone 20 mg tablet 40 mg PO DAILY 5 Days Qty: 10 0RF benzonatate 200 mg capsule 200 mg PO TID PRN (Reason: cough) Qty: 30 0RF azelastine 137 mcg (0.1 %) spray,non-aerosol 2 spray intranasal BID Qty: 30 0RF Rx Instructions: administer into each nostril Primary Care Provider: Gilbert Ballard Referrals: Gilbert Ballard, [Primary Care Provider] - Print Language: Czech
== END 2024-03-14 22:42 | disposition home or self-care (01) ==
PROVIDERS: Emergency Provider Emergency Medicine; PCP Family Medicine; Visit Provider Emergency Medicine
DX: S89.90XA Unspecified injury of unspecified lower leg, initial encounter (principal); W01.0XXA Fall on same level from slipping, tripping and stumbling without subsequent striking against object, initial encounter; Y99.0 Civilian activity done for income or pay
CPT/HCPCS: 73564; 99282

== ENCOUNTER 2024-05-20 20:15 | Emergency (ER) | payer MEDICAID, SELFPAY ==
[2024-05-20 20:16] VITALS: BP 114/84; PULSE 90; RESP 18; TEMP 36.2; O2SAT 98; BMI 26.9
--- NOTE | 2024-05-20 20:51 | EDS_ITS ---
HPI <RACHEL Gomez - Last Filed: 05/20/24 21:54> History of Present Illness Chief Complaint: Upper Extremity Injury Narrative Narrative: Patient is a 24-year-old female with no significant medical history who presents to the [facility] for right arm pain. Patient states ever since Thanksgiving, she has been having achy feeling to her right arm. Patient states it hurts the entire arm. She is concerned she might have a blood clot. Patient states that her mother and her aunt both have them. She has no personal history of blood clots, she denies any injury, long car rides, IV catheters, any trauma to that arm [facility] <RACHEL Gomez - Last Filed: 05/20/24 21:54> [facility] Home Medications ?Medication ?Instructions ?Recorded ?Last Taken ?Type naproxen 500 mg tablet 500 mg PO BID PRN #20 tabs 07/19/20 Unknown Rx azelastine 137 mcg (0.1 %) nasal 2 spray intranasal BID #30 mL 02/26/24 Unknown Rx spray benzonatate 200 mg capsule 200 mg PO TID PRN cough #30 caps 02/26/24 Unknown Rx prednisone 20 mg tablet 40 mg (2 x 20 mg) PO DAILY 5 days 02/26/24 Unknown Rx #10 tabs Allergy/AdvReac Type Severity Reaction Status Date / Time No Known Allergies Allergy Verified 05/20/24 20:16 Social History Smoking Status: Never smoker ROS <RACHEL Gomez - Last Filed: 05/20/24 21:54> ROS ED ROS Narrative Constitutional: Negative for fever, chills, weight loss, weakness Eyes: Negative for vision loss, vision change, double vision ENT: Negative for any sore throat, ear pain, congestion Cardiovascular: Negative for any chest pain, tightness, palpitations Respiratory: Negative for any cough, sputum production, hemoptysis, dyspnea, dyspnea on exertion, orthopnea Gastrointestinal: Negative for any abdominal pain, nausea, vomiting, diarrhea, constipation, blood in stool, blood in vomit : Negative for any urinary frequency, dysuria, retention, blood in urine Muscle skeletal: Negative for any neck pain, back pain. Positive for right arm pain Neurological: Negative for any headache, syncope, dizziness Skin: Negative for any rashes, itching, abrasions, lacerations Psychiatric: Negative for any depression, anxiety, stress, suicidal ideation, homicidal ideation Hematologic: Negative for any excessive bruising, easy bleeding EXAM <RACHEL Gomez - Last Filed: 05/20/24 21:54> Physical Exam Narrative Exam Narrative: Vital signs reviewed. HEET: Head normocephalic atraumatic, TMs clear bilaterally. Posterior pharynx is clear, moist mucous membranes. Nares clear bilaterally. Neck: Supple with no lymphadenopathy or tenderness. No signs of meningismus. Cardiac: Regular rate and rhythm no murmurs gallops or rubs, equal peripheral pulses bilaterally. Respiratory: Lungs clear to auscultation bilaterally. No chest tenderness. Abdomen: Soft, nontender, nondistended. No abdominal bruit or pulsatile masses. No hepatosplenomegaly Extremities: No peripheral edema, no signs of gross trauma or deformity. Active full range of motion of all extremities. Patient has no swelling, +2 radial pulse. No signs of trauma. There is no edema, patient is able to flex and extend without difficulty. Neuro: Cranial nerves II through XII intact, no focal neurological deficits. Skin: Clean dry and intact with no rash, purpura, petechiae, vesicles or pustules. Backs/flank: No CVA tenderness, no midline spinal tenderness, no deformity. Psych: Normal mood and affect. No SI, HI or acute psychosis. Const Vital Signs: 05/20/24 20:16 Temperature 97.2 F L Temperature Source Temporal Pulse Rate 90 Respiratory Rate 18 Blood Pressure 114/84 H Blood Pressure Mean 94 Pulse Ox 98 Oxygen Delivery Method Room Air Positive well nourished and well developed General Appearance ED: well developed MDM <RACHEL Gomez - Last Filed: 05/20/24 21:54> MDM Treatment and Re-Evaluation Narrative: Differential diagnosis includes however is not limited to: Myalgias, shoulder strain, arm pain unknown, DVT, thrombophlebitis Patient appears to be in no obvious distress vital signs are stable, presenting to the [facility] with complaints of right arm pain concerning for a blood clot. Patient will receive a D-dimer, from this we will decide on a plan whether the patient is to be treated, either way she will get a outpatient ultrasound of her right arm. Patient's dimer was negative. At this time, I do have low suspicion for blood clot. At this time, patient received outpatient order for DVT of the right upper extremity. She is happy the plan of care, patient be given no medicines here. Stable for discharge. <Dr. Domingo Kaminski, DO - Last Filed: 05/21/24 01:53> [facility] Narrative Medical decision making narrative: Supervisory Physician Note Patient was seen and examined with the Advanced Practice Provider. Nursing notes and vital signs have been reviewed. Pertinent old records have been reviewed. I agree with the essential elements of the MEGAN's history, physical exam, assessment, and plan. The differential diagnosis and management options were discussed with the MEGAN. I participated in determining and agree with the management, procedures, final impression and disposition as documented. See changes noted by me. Please see addendum or separate note for any additional details. 24-year-old female with no significant past medical history presents for evaluation of right upper arm pain. Ongoing since . Describes it as achy. No significant trauma or injury. Concerned she may have a blood clot given history of blood clots. Denies any history of blood clots in herself. Denies any recent surgery or car rides. Not on hormonal therapy. Denies any numbness or tingling. Been taking [id number] OTCs. Gen: A&O x3, NAD Head: Normocephalic, atraumatic Eyes: No sclera icterus, conjunctiva clear ENT: Moist mucous membranes Neck: Trachea midline, No JVD, full range of motion, nontender CV: RRR, no murmurs, no peripheral edema Resp: Lungs CTA BL, no w/r/c Musc: Full ROM of the right upper extremity, no deformity, mildly tender to palpation in the deltoid and biceps muscle, sensation intact, good capillary refill, radial/ulnar pulses plus 2 out of 4, no edema, no erythema, no warmth, no crepitus Skin: Warm, dry Neuro: Alert, oriented, grossly intact, sensation intact Psych: Cooperative, appropriate mood and affect Suspect muscle strain/spasm. Cannot rule out DVT as ultrasound is not available at this time however low suspicion. D-dimer ordered. D-dimer negative. Patient stable to discharge home. Was given outpatient order for DVT of the right upper extremity. Tylenol Motrin as needed for pain. Follow-up with PCP. Confirmed understanding. Patient discharged. Impression: 1. Right upper extremity pain 2. Concern for DVT Discharge Plan Triage Chief Complaint: Upper Extremity Injury ED Midlevel Provider: Daren Zavala ED Provider: Domingo Kaminski Dx/Rx/DC Orders Clinical Impression: Arm pain Instructions: ED Myalgias Prescriptions: No Action naproxen 500 MG tablet 500 mg PO BID PRN Qty: 20 0RF prednisone 20 mg tablet 40 mg PO DAILY 5 Days Qty: 10 0RF benzonatate 200 mg capsule 200 mg PO TID PRN (Reason: cough) Qty: 30 0RF azelastine 137 mcg (0.1 %) spray,non-aerosol 2 spray intranasal BID Qty: 30 0RF Rx Instructions: administer into each nostril Other Ambulatory Orders: Venous Duplex US, Unilateral (Stat) Facility: [facility] - Location: [facility] Ordered By: Daren Zavala Primary Care Provider: Gilbert Ballard Referrals: Gilbert Ballard, [Primary Care Provider] - Activity Restrictions/Additional Instructions: Please follow the instructions to receive your venous duplex of the right upper extremity. Print Language: Japanese Disposition Disposition: Home, Self Care Discharge Date/Time: 05/20/24 21:54
[2024-05-20 21:38] LABS: D-Dimer Quantitative (DVT/PE) 0.27 FEU/ug/m (0.27-0.49)
[2024-05-20 21:54] VITALS: BP 121/78; PULSE 81; RESP 16; TEMP 36.6; O2SAT 99
== END 2024-05-20 21:54 | disposition home or self-care (01) ==
PROVIDERS: Nurse Practitioner; Emergency Provider Surgery; PCP Family Medicine; Visit Provider Surgery
DX: M79.601 Pain in right arm (principal); Z82.49 Family history of ischemic heart disease and other diseases of the circulatory system
CPT/HCPCS: 85379; 99282

== ENCOUNTER → 2024-05-24 | Outpatient (CLI) | payer MEDICAID, SELFPAY ==
--- NOTE | 2024-05-24 13:56 | VDUE_ITS ---
Reason For Study: Right arm pain Right Proximal Right jugular vein is spontaneous, widely patent, phasic, with no intraluminal echogenicity noted. Right subclavian vein is spontaneous, widely patent, phasic, with no intraluminal echogenicity noted. Right Lower Arm Right radial vein is compressible. Right ulnar vein is compressible. Right Arm Right axillary vein is spontaneous, patent, phasic, competent, compressible and demonstrates augmentation. Right brachial vein is compressible. Right cephalic vein is compressible. Right basilic vein is compressible. Patient Safety No PCP, patient seen in ED 05/20/2024. No preliminary report given. VL/Venous Duplex US, Unilateral Interpretation Summary Deep veins of the right upper extremity are patent and compressible segmentally . There is no evidence of deep vein thrombosis. The superficial veins of the right upper extr emity, the basilic and cephalic veins, are patent and compressible. There is no evidence of right upper extremity superficial thrombophlebitis involving the veins imaged. Ordering Physician: Daren Zavala Performed By: Marlen Palomares RVT ???
== END | disposition home or self-care (01) ==
LOC: CVS 13:51
PROVIDERS: PCP Family Medicine; Referring Provider Nurse Practitioner; Visit Provider Nurse Practitioner
DX: M79.601 Pain in right arm (principal)
CPT/HCPCS: 93971